=== PATIENT | female | born 1995 | race Hispanic/Latino ===

== ENCOUNTER 2016-05-11 00:34 | Emergency (ER) | payer OTHER ==
[2016-05-11] MEDS ORDERED: ONDANSETRON 4 MG ORAL DISINTEGRATING TAB (S0181) As Ordered ONE (01:19)
[2016-05-11] MEDS ORDERED: PERCOCET 5MG/325MG TAB As Ordered ONE (01:28)
--- NOTE | 2016-05-11 01:42 | EDDOCDS ---
Nurse's Notes [facility] Name: Trisha Coates Age: 21 yrs Sex: Female : 1995 Arrival Date: 05/11/2016 Time: 00:34 Bed I3 / M3 Private MD: Diagnosis: Vomiting;Dental procedure status Presentation: 05/11 00:43 Presenting complaint: Patient states: Had wisdom teeth out today and is having vomiting jo3 after taking hydrocodone for pain. Adult Sepsis Screening: Patient's respiratory rate is less than 22. Systolic blood pressure is greater than 100. Patient has a qSOFA score of 0- Negative Sepsis Screen. Suicide/Homicide risk assessment- the patient denies having any suicidal and/or homicidal ideations and does not present with any other emotional, behavioral or mental health complaints. Status: The patient is a dependent. Transition of care: patient was not received from another setting of care. 00:43 Acuity: ZAYNAB Level 5 jo3 00:43 Method Of Arrival: Walkin/Carried/Asstd jo3 Triage Assessment: 00:47 General: Appears in no apparent distress, Behavior is appropriate for age, quiet. HIV jo3 screening NA for this visit Offered previously. Neurological: Level of Consciousness is awake, alert, Oriented to person, place, time. Derm: Skin is pink, warm & dry. 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 Methylprednisolone Oral dose pack 2. amoxicillin 500 mg Oral tab 1 tab every 8 hours 3. hydrocodone-acetaminophen 5-325 mg oral tab 1 tab every 4-6 hours - PMHx: none; - PSHx: none; - Social history: Smoking status: Patient states was never smoker of tobacco. No barriers to communication noted, The patient speaks fluent Welsh, Speaks appropriately for age. - Family history: Not pertinent. - : The pt / caregiver states he / she is not on anticoagulants. Home medication list is obtained from the patient. - Exposure Risk Screening:: None identified. Screenin:39 Screening information is obtained from the patient. Fall risk: No risks identified. ld5 Assistance ADL's: requires no assistance with activities of daily living. Abuse/DV Screen: The patient / caregiver reports he/she is: not in a situation that causes fear, pain or injury. Nutritional screening: No deficits noted. Advance Directives: There is no active DNR order. home support is adequate. Assessment: 01:39 General: Appears in no apparent distress, Behavior is cooperative. Pain: Location: ld5 mouth Pain currently is 10 out of 10 on a pain scale. Neurological: Level of Consciousness is awake, alert. Respiratory: Airway is patent Respiratory effort is even, unlabored. GI: Reports nausea, vomiting, intolerance of food, intolerance of fluids. Vital Signs: 00:47 BP 124 / 81; Pulse 73; Resp 16; Temp 98.2(TE); Pulse Ox 98% on R/A; Weight 49.9 kg (R); jo3 Height 5 ft. 2 in. (157.48 cm); Pain 10/10; 00:47 Body Mass Index 20.12 (49.90 kg, 157.48 cm) jo3 Vitals: 00:47 Log In Time: May 11, 2016 at 00:36. jo3 ED Course: 00:35 Patient visited by Bethany Lopez Reg. hs2 00:35 Patient moved to Waiting hs2 00:45 Triage Initiated jo3 00:50 Patient visited by Lyn Maoy RN. jo3 00:57 Patient moved to I3 / M3 jo3 01:10 Dwayne Marcus PA is PHCP. mo1 01:10 Trace Mccall DO is Attending Physician. mo1 01:17 Patient visited by Dwayne Marcus PA. mo1 01:39 The patient / caregiver is instructed regarding the plan of care and ED course. ld5 Accompanied by Significant Other, Patient has correct armband on for positive identification. 01:39 No IV's were initiated during this patient's visit. No procedures done that require ld5 assistance. 01:41 Patient visited by Kandice Vega RN. ld5 Administered Medications: 01:27 Drug: Ondansetron ODT 4 mg [ondansetron 4 mg disintegrating tablet (1 tabs)] Route: PO; ld5 01:39 Drug: oxyCODONE-acetaminophen 1 tabs [oxycodone-acetaminophen 5 mg-325 mg tablet (1 ld5 tabs)] Route: PO; 01:39 Follow up: Response: Confirmed pt not driving.; Pt left department before re-evaluation ld5 is appropriate Order Results: There are currently no results for this order. Outcome: 01:28 Discharge ordered by Provider. mo1 01:39 Discharge Assessment: Patient awake, alert and oriented x 3. No cognitive and/or ld5 functional deficits noted. Patient verbalized understanding of disposition instructions. patient administered narcotics - yes. Pt provided with safe discharge. The following High Risk Discharge criteria are identified: None. Discharged to home ambulatory, with significant other. Condition: stable. Discharge instructions given to patient, significant other, Instructed on discharge instructions, follow up and referral plans. medication usage, no driving heavy equipment, Demonstrated understanding of instructions, medications, Pt was receptive of discharge instructions/ teaching. Prescriptions given X 1. No special radiology studies were completed. Property :Personal belongings accompany Pt. 01:41 Patient left the ED. ld5 Signatures: Lyn MayoRN RN jo3 Kandice Vega RN RN ld5 Dwayne Marcus PA PA mo1 Bethany Lopez, Reg Reg hs2 JERRYD
--- NOTE | 2016-05-11 01:42 | EDDOCDS ---
Physician Documentation [facility] Name: Trisha Coates Age: 21 yrs Sex: Female : 1995 Arrival Date: 05/11/2016 Time: 00:34 Bed I3 / M3 Private MD: Disposition: 05/11/16 01:28 Discharged to Home/Self Care. Impression: Vomiting, Dental procedure status. - Condition is Stable. - Discharge Instructions: Nausea and Vomiting. - Prescriptions for ZOFRAN ODT 4 mg Oral - dissolve 1 tablet by ORAL route 4 times per day As needed do not chew, do not swallow whole; 20 tablet. - Medication Reconciliation, Local Pharmacy Hours form. - Follow up: Private Physician; When: Call to arrange an appointment; Reason: Recheck today's complaints, Continuance of care. - Problem is new. - Symptoms are unchanged. Historical: - Allergies: No known drug Allergies; - Home Meds: 1. Methylprednisolone Oral dose pack 2. amoxicillin 500 mg Oral tab 1 tab every 8 hours 3. hydrocodone-acetaminophen 5-325 mg oral tab 1 tab every 4-6 hours - PMHx: none; - PSHx: none; - Social history: Smoking status: Patient states was never smoker of tobacco. No barriers to communication noted, The patient speaks fluent [place], Speaks appropriately for age. - Family history: Not pertinent. - : The pt / caregiver states he / she is not on anticoagulants. Home medication list is obtained from the patient. - Exposure Risk Screening:: None identified. 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 2 in. (157.48 cm); Pain 10/10; 00:47 Body Mass Index 20.12 (49.90 kg, 157.48 cm) jo3 MDM: 01:17 Ondansetron ODT Oral Disintegrating Tablet 4 mg PO once ordered. mo1 01:26 oxyCODONE-acetaminophen 5 mg-325 mg 1 tabs PO once ordered. mo1 Administered Medications: 01:27 Drug: Ondansetron ODT 4 mg [ondansetron 4 mg disintegrating tablet (1 tabs)] Route: PO; ld5 01:39 Drug: oxyCODONE-acetaminophen 1 tabs [oxycodone-acetaminophen 5 mg-325 mg tablet (1 ld5 tabs)] Route: PO; 01:39 Follow up: Response: Confirmed pt not driving.; Pt left department before re-evaluation ld5 is appropriate Signatures: Lyn Mayo RN RN jo3 Kandice Vega RN RN ld5 Dwayne Marcus PA PA mo1 MTDD
--- NOTE | 2016-05-13 02:42 | EDDOCDS ---
Physician Documentation [facility] Name: Trisha Coates Age: 21 yrs Sex: Female : 1995 Arrival Date: 05/11/2016 Time: 00:34 Bed I3 / M3 Private MD: Disposition: 05/11/16 01:28 Discharged to Home/Self Care. Impression: Vomiting, Dental procedure status. - Condition is Stable. - Discharge Instructions: Nausea and Vomiting. - Prescriptions for ZOFRAN ODT 4 mg Oral - dissolve 1 tablet by ORAL route 4 times per day As needed do not chew, do not swallow whole; 20 tablet. - Medication Reconciliation, Local Pharmacy Hours form. - Follow up: Private Physician; When: Call to arrange an appointment; Reason: Recheck today's complaints, Continuance of care. - Problem is new. - Symptoms are unchanged. Historical: - Allergies: No known drug Allergies; - Home Meds: 1. Methylprednisolone Oral dose pack 2. amoxicillin 500 mg Oral tab 1 tab every 8 hours 3. hydrocodone-acetaminophen 5-325 mg oral tab 1 tab every 4-6 hours - PMHx: none; - PSHx: none; - Social history: Smoking status: Patient states was never smoker of tobacco. No barriers to communication noted, The patient speaks fluent [place], Speaks appropriately for age. - Family history: Not pertinent. - : The pt / caregiver states he / she is not on anticoagulants. Home medication list is obtained from the patient. - Exposure Risk Screening:: None identified. 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 2 in. (157.48 cm); Pain 10/10; 00:47 Body Mass Index 20.12 (49.90 kg, 157.48 cm) jo3 MDM: 01:17 Ondansetron ODT Oral Disintegrating Tablet 4 mg PO once ordered. mo1 01:26 oxyCODONE-acetaminophen 5 mg-325 mg 1 tabs PO once ordered. mo1 03:16 [facility] Payment Agreement was scanned into [employer] and attached to record. [facility] 03:17 Financial registration complete. [facility] 14:06 T-Sheet-- Draft Copy was scanned into [employer] and attached to record. gb Administered Medications: 01:27 Drug: Ondansetron ODT 4 mg [ondansetron 4 mg disintegrating tablet (1 tabs)] Route: PO; ld5 01:39 Drug: oxyCODONE-acetaminophen 1 tabs [oxycodone-acetaminophen 5 mg-325 mg tablet (1 ld5 tabs)] Route: PO; 01:39 Follow up: Response: Confirmed pt not driving.; Pt left department before re-evaluation ld5 is appropriate Signatures: Melinda Youngblood, Reg Reg gb Lyn MayoRN RN jo3 Kandice Vega RN RN ld5 Dwayne Marcus PA PA Martina Myers [facility] The chart was reviewed and I authenticate all verbal orders and agree with the evaluation and treatment provided.Attachments: 03:16 [facility] [place] Payment Agreement [facility] 14:06 T-Sheet-- Draft Copy Chart Complete [facility]
--- NOTE | 2016-05-13 02:42 | EDDOCDS ---
Physician Documentation [facility] Name: Trisha Coates Age: 21 yrs Sex: Female : 1995 Arrival Date: 05/11/2016 Time: 00:34 Bed I3 / M3 Private MD: Disposition: 05/11/16 01:28 Discharged to Home/Self Care. Impression: Vomiting, Dental procedure status. - Condition is Stable. - Discharge Instructions: Nausea and Vomiting. - Prescriptions for ZOFRAN ODT 4 mg Oral - dissolve 1 tablet by ORAL route 4 times per day As needed do not chew, do not swallow whole; 20 tablet. - Medication Reconciliation, Local Pharmacy Hours form. - Follow up: Private Physician; When: Call to arrange an appointment; Reason: Recheck today's complaints, Continuance of care. - Problem is new. - Symptoms are unchanged. Historical: - Allergies: No known drug Allergies; - Home Meds: 1. Methylprednisolone Oral dose pack 2. amoxicillin 500 mg Oral tab 1 tab every 8 hours 3. hydrocodone-acetaminophen 5-325 mg oral tab 1 tab every 4-6 hours - PMHx: none; - PSHx: none; - Social history: Smoking status: Patient states was never smoker of tobacco. No barriers to communication noted, The patient speaks fluent Bulgarian, Speaks appropriately for age. - Family history: Not pertinent. - : The pt / caregiver states he / she is not on anticoagulants. Home medication list is obtained from the patient. - Exposure Risk Screening:: None identified. 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 2 in. (157.48 cm); Pain 10/10; 00:47 Body Mass Index 20.12 (49.90 kg, 157.48 cm) jo3 MDM: 01:17 Ondansetron ODT Oral Disintegrating Tablet 4 mg PO once ordered. mo1 01:26 oxyCODONE-acetaminophen 5 mg-325 mg 1 tabs PO once ordered. mo1 03:16 [facility] Payment Agreement was scanned into [employer] and attached to record. [facility] 03:17 Financial registration complete. [facility] 14:06 T-Sheet-- Draft Copy was scanned into [employer] and attached to record. gb Administered Medications: 01:27 Drug: Ondansetron ODT 4 mg [ondansetron 4 mg disintegrating tablet (1 tabs)] Route: PO; ld5 01:39 Drug: oxyCODONE-acetaminophen 1 tabs [oxycodone-acetaminophen 5 mg-325 mg tablet (1 ld5 tabs)] Route: PO; 01:39 Follow up: Response: Confirmed pt not driving.; Pt left department before re-evaluation ld5 is appropriate Signatures: Melinda Youngblood, Reg Reg gb Lyn MayoRN RN jo3 Kandice Vega RN RN ld5 Dwayne Marcus PA PA Martina Myers [facility] The chart was reviewed and I authenticate all verbal orders and agree with the evaluation and treatment provided.Attachments: 03:16 [facility] [place] Payment Agreement [facility] 14:06 T-Sheet-- Draft Copy Chart Complete [facility]
--- NOTE | 2016-05-13 02:42 | EDDOCDS ---
Nurse's Notes [facility] Name: Trisha Coates Age: 21 yrs Sex: Female : 1995 Arrival Date: 05/11/2016 Time: 00:34 Bed I3 / M3 Private MD: Diagnosis: Vomiting;Dental procedure status Presentation: 05/11 00:43 Presenting complaint: Patient states: Had wisdom teeth out today and is having vomiting jo3 after taking hydrocodone for pain. Adult Sepsis Screening: Patient's respiratory rate is less than 22. Systolic blood pressure is greater than 100. Patient has a qSOFA score of 0- Negative Sepsis Screen. Suicide/Homicide risk assessment- the patient denies having any suicidal and/or homicidal ideations and does not present with any other emotional, behavioral or mental health complaints. Status: The patient is a dependent. Transition of care: patient was not received from another setting of care. 00:43 Acuity: ZAYNAB Level 5 jo3 00:43 Method Of Arrival: Walkin/Carried/Asstd jo3 Triage Assessment: 00:47 General: Appears in no apparent distress, Behavior is appropriate for age, quiet. HIV jo3 screening NA for this visit Offered previously. Neurological: Level of Consciousness is awake, alert, Oriented to person, place, time. Derm: Skin is pink, warm & dry. 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 Methylprednisolone Oral dose pack 2. amoxicillin 500 mg Oral tab 1 tab every 8 hours 3. hydrocodone-acetaminophen 5-325 mg oral tab 1 tab every 4-6 hours - PMHx: none; - PSHx: none; - Social history: Smoking status: Patient states was never smoker of tobacco. No barriers to communication noted, The patient speaks fluent Belgian, Speaks appropriately for age. - Family history: Not pertinent. - : The pt / caregiver states he / she is not on anticoagulants. Home medication list is obtained from the patient. - Exposure Risk Screening:: None identified. Screenin:39 Screening information is obtained from the patient. Fall risk: No risks identified. ld5 Assistance ADL's: requires no assistance with activities of daily living. Abuse/DV Screen: The patient / caregiver reports he/she is: not in a situation that causes fear, pain or injury. Nutritional screening: No deficits noted. Advance Directives: There is no active DNR order. home support is adequate. Assessment: 01:39 General: Appears in no apparent distress, Behavior is cooperative. Pain: Location: ld5 mouth Pain currently is 10 out of 10 on a pain scale. Neurological: Level of Consciousness is awake, alert. Respiratory: Airway is patent Respiratory effort is even, unlabored. GI: Reports nausea, vomiting, intolerance of food, intolerance of fluids. Vital Signs: 00:47 BP 124 / 81; Pulse 73; Resp 16; Temp 98.2(TE); Pulse Ox 98% on R/A; Weight 49.9 kg (R); jo3 Height 5 ft. 2 in. (157.48 cm); Pain 10/10; 00:47 Body Mass Index 20.12 (49.90 kg, 157.48 cm) jo3 Vitals: 00:47 Log In Time: May 11, 2016 at 00:36. jo3 ED Course: 00:35 Patient visited by Bethany Lopez Reg. hs2 00:35 Patient moved to Waiting hs2 00:45 Triage Initiated jo3 00:50 Patient visited by Lyn Mayo RN. jo3 00:57 Patient moved to I3 / M3 jo3 01:10 Dwayne Marcus PA is PHCP. mo1 01:10 Trace Mccall DO is Attending Physician. mo1 01:17 Patient visited by Dwayne Marcus PA. mo1 01:39 The patient / caregiver is instructed regarding the plan of care and ED course. ld5 Accompanied by Significant Other, Patient has correct armband on for positive identification. 01:39 No IV's were initiated during this patient's visit. No procedures done that require ld5 assistance. 01:41 Patient visited by Kandice Vega RN. ld5 03:16 [facility] [place] Payment Agreement was scanned into [employer] and attached to record. [facility] 14:06 T-Sheet-- Draft Copy was scanned into [employer] and attached to record. gb Administered Medications: 01:27 Drug: Ondansetron ODT 4 mg [ondansetron 4 mg disintegrating tablet (1 tabs)] Route: PO; ld5 01:39 Drug: oxyCODONE-acetaminophen 1 tabs [oxycodone-acetaminophen 5 mg-325 mg tablet (1 ld5 tabs)] Route: PO; 01:39 Follow up: Response: Confirmed pt not driving.; Pt left department before re-evaluation ld5 is appropriate Order Results: There are currently no results for this order. Outcome: 01:28 Discharge ordered by Provider. mo1 01:39 Discharge Assessment: Patient awake, alert and oriented x 3. No cognitive and/or ld5 functional deficits noted. Patient verbalized understanding of disposition instructions. patient administered narcotics - yes. Pt provided with safe discharge. The following High Risk Discharge criteria are identified: None. Discharged to home ambulatory, with significant other. Condition: stable. Discharge instructions given to patient, significant other, Instructed on discharge instructions, follow up and referral plans. medication usage, no driving heavy equipment, Demonstrated understanding of instructions, medications, Pt was receptive of discharge instructions/ teaching. Prescriptions given X 1. No special radiology studies were completed. Property :Personal belongings accompany Pt. 01:41 Patient left the ED. ld5 Signatures: Melinda Youngblood, Reg Reg gb Lyn MayoRN RN [id number] Kandice Vega RN RN ld5 Dwayne Marcus PA PA mo1 Martina Elise Hillary, Reg Reg hs2 Chart Complete MTDD
== END 2016-05-11 01:41 | disposition home or self-care (01) ==
LOC: M ED 00:34
DX: K08.9 Disorder of teeth and supporting structures, unspecified (principal); R11.2 Nausea with vomiting, unspecified; Z79.52 Long term (current) use of systemic steroids; Z79.899 Other long term (current) drug therapy

== ENCOUNTER 2016-09-03 21:51 | Emergency (ER) | payer OTHER ==
[~2016-09-03] VITALS: Ht 165.1 cm; Wt 59.0 kg
--- NOTE | 2016-09-04 01:40 | REPUSA ---
CLINICAL HISTORY: Pelvic pain. TECHNIQUE: Realtime sonographic images were obtained in multiple projections via TV approach. COMMENTS: The uterus is retroverted measuring 7.5x3.7x4.4 cm. The endometrial echo pattern is within normal li mits measuring 10.1 mm. There is no evidence of free fluid within the pelvic cul-de-sac. The right ovary measures 3.5 x 2.4 x 3.5 cm with multiple normal follicles and the left ovary measure s 7.1x2.2x4.3 cm . There is left ovarian exophytic cyst measuring 4.5x4.5x3.5 cm. There is no evidence for abnormal vascularity. IMPRESSION: Left ovarian exophytic cyst. No evidence of ovarian torsion. Thank you for your kind referral of this patient.
[2016-09-04] MEDS ORDERED: FLAG500T PO (02:12)
[2016-09-04 02:35] VITALS: BP 102/55
--- NOTE | 2016-09-05 09:28 | ED PDOC ---
Post-Departure Follow-Up pelvic us report faxed to melecio everett for fu Abe Black MD September 05, 2016 09:28
== END 2016-09-04 02:39 | disposition home or self-care (01) ==
LOC: M ED 23:50
DX: N83.202 Unspecified ovarian cyst, left side (principal); N76.0 Acute vaginitis